=== PATIENT | male | born 1940 | race Caucasian/White ===

== ENCOUNTER 2023-12-11 16:13 | Emergency (ER) | payer MEDICARE, OTHER, SELFPAY ==
[2023-12-11 16:15] VITALS: BP 134/81
[2023-12-11 16:36] LABS: Urine Albumin Trace (Neg - Trace); Urine Bilirubin Negative (Negative); Urine Character Clear (Clear); Urine Color Yellow; Urine Glucose Negative (Negative); Urine Ketone Negative (Negative); Urine Leukocyte Negative (Negative); Urine Nitrite Negative (Negative); Urine Occult Blood Negative (Negative); Urine Urobilinogen Negative (Neg - 1+)
--- NOTE | 2023-12-11 16:55 | ED.GENMED ---
History of Present Illness
General
Chief Complaint: Male Genito-Urinary Symptoms
Source: spouse and director retirement
Time Seen by Provider: 12/11/23 16:18
Travel History
Have you had any contact with someone who has COVID-19?: No
Do you have any symptoms of coronavirus? Fever > 100 degrees, chills, cough, shortness of breath, sore throat, loss of taste or smell, muscle aches, or headache?: No
History of Present Illness
History of Present Illness:
[place] language line, [place], [id number] used for interpretation
83-year-old male with past medical history of diabetes, hyperlipidemia, colon cancer, chronic kidney disease, currently being treated for pneumonia at [facility] presenting to the ER from [facility] with family concerned patient may have a
urinary tract infection noting that he has been complaining of urinary urgency as well as sensation of incomplete bladder emptying. Patient has a questionable history of early Alzheimer's and Parkinson's disease. Family notes that he is receiving
antibiotics for pneumonia but are unsure as to how many days he has left of the antibiotic. Family has no other concerns at this time.
Past History
Past History
ED Past Medical History: Cancer, GERD, HTN, Hypercholesterolemia, Renal failure, Psychiatric and Other (Parkinson's disease)
ED Past Surgical History: None
Social History
Tobacco: Non-smoker
Alcohol: None
Drug: None
Personal:
Living: long term
Review of Systems
Review of Systems
All Other Systems: ROS reviewed and negative except as documented in HPI and ROS
Phy Exam
Physical Exam
Physical Exam:
GENERAL: Alert , in no apparent distress, persistent resting tremor noted
EYE: Clear conjunctiva
NECK: Supple
ENT: o/p clr, mmm.
CARDIAC: Regular rate and rhythm .
LUNGS: Clear breath sounds bilaterally, no acute respiratory distress, no wheezes/rales/rhonchi
ABDOMEN: Soft, without focal tenderness, no r/g, no cvat
NEUROLOGICAL: Alert and oriented, no focal neuro deficits
SKIN: Warm and dry, skin intact.
MUSCULOSKELETAL: No edema, well perfused.
PSYCH: Normal and appropriate interaction.
Scores
Heart Failure Risk
Heart Failure Risk Score: Not Applicable
Heart Score for Chest Pain Patients
STEMI patient?: Not applicable
Withdrawal Assessment of Alcohol
Withdrawal Assessment Completed?: Not applicable
Course
Orders/Labs/Results
Orders:
Orders
12/11/23 16:26
Straight Cath As Directed
Frequency: One time now
Patient may straight cath themselves: No
12/11/23 16:27
Urine Culture Reflexed from UA [Urinalysis Reflex To Culture] Urgent
Date Specimen was Collected: 12/11/23
Time Specimen was Collected: 16:26
12/11/23 17:05
Basic Metabolic Panel Urgent
Complete Blood Count/With Diff Urgent
Abnormal Lab Results
12/11/23
17:05
RBC 3.77 L 10^6/uL
(4.70-6.10)
Hgb 11.3 L g/dL
(13.0-18.0)
Hct 31.8 L %
(39.0-52.0)
MPV 10.6 H fL
(7.4-10.4)
Abs Immat Gran (auto) 0.1 H 10^3/uL
(0-0.05)
Absolute Monos (auto) 1.1 H 10^3/uL
(0.1-0.6)
Immature Gran % 0.7 H %
(0-0.5)
Monocytes % 13.1 H %
(1.7-9.3)
BUN 44 H mg/dl
(9-20)
Creatinine 1.7 H mg/dL
(0.7-1.3)
Glucose 133 H mg/dl
(70-99)
12/11/23 17:05
12/11/23 17:05
Vital Signs
Initial and Last Documented VS:
Initial Vital Signs
Temp Pulse Resp BP Pulse Ox
98.0 F 70 20 134/81 96
12/11/23 16:15 12/11/23 16:15 12/11/23 16:15 12/11/23 16:15 12/11/23 16:15
Last Documented Vital Signs
Temp Pulse Resp BP Pulse Ox
98.0 F 98 20 131/79 95
12/11/23 16:15 12/11/23 17:22 12/11/23 17:22 12/11/23 17:22 12/11/23 17:22
MDM/Problems Addressed
Differential Diagnosis Includes:
Cystitis, pyelonephritis, BPH, urinary retention
MDM/Problems Addressed:
83-year-old male present emergency department for evaluation for possible UTI. Family was concerned after patient alerted them to incomplete emptying of bladder and urinary urgency. Patient was bladder scanned here which did not show any
significant retention. We were able to straight cath patient for a accurate specimen which did not show any sign of infection. I added on lab work to ensure patient did not have any significant kidney injury or leukocytosis. Patient's creatinine
is reportedly at his baseline. I notified the nursing staff at [facility] and discussed the workup with them. Patient is stable for discharge back to [facility].
*Pulse Oximetry
Patient hypoxic: no
*Critical Care Note
Total Time (30-74mins, 75-104mins- exclusive of procedures): Not Applicable
Patient Management
Discussion with other providers: [facility] staff
ED Attending Note
-
Portions of this chart may have been created with voice recognition software.� Occasional wrong word or��sound alike� substitutions may have occurred due to the inherent limitations of voice recognition software.
Discharge Plan
Departure
Patient Disposition: Home (Routine Discharge)
Date of Disposition: 12/11/23
Time of Disposition: 17:44
Patient with high blood pressure during this ER visit?: No
Discharge Problem:
Difficulty urinating, CKD (chronic kidney disease)
Instructions: Dysuria, Adult (DC)
Referrals:
Korey Ventura Jr., MD [Active] -
Interventions
Interventions:
*Risk Screen - Suicide Last Done: 12/11/23 16:15
*General Assessment Last Done: 12/11/23 16:15
*Neglect/Abuse Screening Last Done: 12/11/23 16:15
ED- Fall Risk Assessment Last Done: 12/11/23 16:29
*ED COVID-19 Vaccine History Last Done: 12/11/23 16:29
ED-Male Genitourinary Assessment Last Done: 12/11/23 16:29
[2023-12-11 17:15] LABS: % Basophils 0.2 % (0-2); % Eosinophils 0.8 % (0-6); % Immature Granulocytes 0.7 % (0-0.5); % Lymphocytes 30.7 % (20.5-51.1); % Monocytes 13.1 % (1.7-9.3); % Neutrophils 54.5 % (42.2-75.2); Absolute Eosinophils 0.1 10^3/uL (0-0.7); Absolute Immature Granulocytes 0.1 10^3/uL (0-0.05); Absolute Lymphocytes 2.6 10^3/uL (1.2-3.4); Absolute Monocytes 1.1 10^3/uL (0.1-0.6); Absolute Neutrophils 4.5 10^3/uL (1.4-6.5); Hematocrit 31.8 % (39.0-52.0); Hemoglobin 11.3 g/dL (13.0-18.0); Mean Corp Hgb Conc. 35.5 g/dL (33.0-37.0); Mean Corpuscular Volume 84.4 fL (80.0-94.0); Mean Platelet Volume 10.6 fL (7.4-10.4); Nucleated Red Blood Cells % 0 % (-); Platelet Count 187 10^3/uL (130-400); Red Blood Cell Count 3.77 10^6/uL (4.70-6.10); Red Cell Dist. Width 14.4 % (11.5-14.5); White Blood Cell Count 8.3 10^3/uL (4.8-10.8)
[2023-12-11 17:22] VITALS: BP 131/79
[2023-12-11 17:38] LABS: Blood Urea Nitrogen 44 mg/dl (9-20); Calcium 8.7 mg/dl (8.4-10.2); Carbon Dioxide 23 mmol/L (22-30); Chloride 106 mmol/L (98-107); Glucose 133 mg/dl (70-99); Potassium 3.6 mmol/L (3.5-5.1); Sodium 138 mmol/L (135-145); eGFR 39.26
[2023-12-11 19:00] VITALS: BP 136/72
== END 2023-12-11 19:12 | disposition home or self-care (01) ==
LOC: EMR 16:13
PROVIDERS: Physician Assistant Medical; EMERGENCY PHYSICIAN Emergency Medicine
DX: I12.9 Hypertensive chronic kidney disease with stage 1 through stage 4 chronic kidney disease, or unspecified chronic kidney disease (principal); N18.9 Chronic kidney disease, unspecified; R33.8 Other retention of urine; R39.15 Urgency of urination; J18.9 Pneumonia, unspecified organism; G20.A1 Parkinson's disease without dyskinesia, without mention of fluctuations; K21.9 Gastro-esophageal reflux disease without esophagitis; E11.22 Type 2 diabetes mellitus with diabetic chronic kidney disease; E78.00 Pure hypercholesterolemia, unspecified; Z85.038 Personal history of other malignant neoplasm of large intestine; Z79.82 Long term (current) use of aspirin
CPT/HCPCS: 99283; 51798; 51701; 80048; 81003; 85025